=== PATIENT | male | born 1995 | race Caucasian/White ===

== ENCOUNTER → 2017-11-14 17:42 | Outpatient (CLI) | payer BC, SELFPAY | PROVIDERS: Referring Provider Physician Assistant; Visit Provider Physician Assistant | DX: J02.9 Acute pharyngitis, unspecified (principal) | CPT/HCPCS: 87081 ==

== ENCOUNTER → 2018-04-09 16:01 | Outpatient (CLI) | payer BC, SELFPAY ==
[2018-04-09 15:53] VITALS: BMI 39.4
--- NOTE | 2018-04-09 16:04 | RAD_ITS ---
STUDY: X-RAY - RIGHT HAND REASON FOR EXAM: Male, 22 years old. Fifth metacarpal pain, swelling and bruising. TECHNIQUE: view(s) of the hand. COMPARISON: None. FINDINGS: Normal radiocarpal articulation. Normal distal radioulnar joint. Normal visualized carpal bones. Normal carpal articulations Normal carpometacarpal articulation of the thumb. Normal second through fifth carpometacarpal joints. First through fourth metacarpals are normal. There is an acute, nondisplaced fracture of the fifth metacarpal neck and distal shaft with moderate apex dorsal angulation. Normal metacarpophalangeal joint of the thumb. Normal interphalangeal joint of the thumb. Normal proximal and distal phalanges of the thumb. Normal metacarpophalangeal joints of the second through fifth fingers. Normal proximal and distal interphalangeal joints of the second through fifth fingers. Normal phalanges of the second through fifth fingers. There is mild dorsal and medial soft tissue swelling. RAD/Hand Min 3 Views IMPRESSION: 1. Acute fifth metacarpal Boxer's fracture, as described. Electronically Signed: Yelitza Kumar MD at 16:39 EST Tel , Service support ,
== END ==
PROVIDERS: Referring Provider Physician Assistant; Visit Provider Physician Assistant
DX: S69.91XA Unspecified injury of right wrist, hand and finger(s), initial encounter (principal)
CPT/HCPCS: 73130

== ENCOUNTER → 2018-04-10 08:58 | Outpatient (CLI) | payer BC, SELFPAY ==
[2018-04-09 15:53] VITALS: BMI 39.4
--- NOTE | 2018-04-10 08:59 | RAD_ITS ---
STUDY: X-RAY - RIGHT HAND REASON FOR EXAM: Male, 22 years old. Injury. TECHNIQUE: 3 view(s) of the hand. COMPARISON: April 09, 2018 FINDINGS: Casting material obscures anatomic detail. Normal radiocarpal articulation. Normal distal radioulnar joint. Normal visualized carpal bones. Normal carpal articulations Normal carpometacarpal articulation of the thumb. Normal second through fifth carpometacarpal joints. There is a fracture again visualized within the distal diaphysis of the fifth metacarpal with ventral angulation of the metacarpal head. The alignment has not significantly changed since the prior examination. Normal metacarpophalangeal joint of the thumb. Normal interphalangeal joint of the thumb. Normal proximal and distal phalanges of the thumb. Normal metacarpophalangeal joints of the second through fifth fingers. Normal proximal and distal interphalangeal joints of the second through fifth fingers. Normal phalanges of the second through fifth fingers. The soft tissue structures are unremarkable. RAD/Hand Min 3 Views IMPRESSION: Fifth metacarpal fracture. Electronically Signed: Traci Sheikh MD at 17:20 EST Tel , Service support ,
== END ==
PROVIDERS: Referring Provider Physician Assistant; Visit Provider Physician Assistant
DX: S92.353A Displaced fracture of fifth metatarsal bone, unspecified foot, initial encounter for closed fracture (principal)
CPT/HCPCS: 73130

== ENCOUNTER → 2018-04-17 15:18 | Outpatient (CLI) | payer BC, SELFPAY ==
[2018-04-10 13:26] VITALS: BMI 39.4
--- NOTE | 2018-04-17 15:20 | RAD_ITS ---
STUDY: X-RAY - RIGHT HAND REASON FOR EXAM: Fracture. TECHNIQUE: 3 view(s) of the hand. COMPARISON: Radiographs 04/10/2018. FINDINGS: Normal radiocarpal articulation. Normal distal radioulnar joint. Normal visualized carpal bones. Normal carpal articulations Normal carpometacarpal articulation of the thumb. Normal second through fifth carpometacarpal joints. There is a fracture of the fifth metacarpal neck with mild palmar angulation unchanged since the prior study. Normal metacarpophalangeal joint of the thumb. Normal interphalangeal joint of the thumb. Normal proximal and distal phalanges of the thumb. Normal metacarpophalangeal joints of the second through fifth fingers. Normal proximal and distal interphalangeal joints of the second through fifth fingers. Normal phalanges of the second through fifth fingers. There is an overlying cast. RAD/Hand Min 3 Views IMPRESSION: No interval change of the fifth metacarpal fracture. Electronically Signed: Humble Wren MD at 13:53 EST Tel , Service support ,
== END ==
PROVIDERS: Referring Provider Physician Assistant; Visit Provider Physician Assistant
DX: S62.306A Unspecified fracture of fifth metacarpal bone, right hand, initial encounter for closed fracture (principal)
CPT/HCPCS: 73130

== ENCOUNTER → 2018-04-25 15:21 | Outpatient (CLI) | payer BC, SELFPAY ==
[2018-04-17 15:23] VITALS: BMI 39.4
--- NOTE | 2018-04-25 15:22 | RAD_ITS ---
STUDY: X-RAY - RIGHT HAND REASON FOR EXAM: Fifth metacarpal fracture. TECHNIQUE: 3 view(s) of the hand. COMPARISON: Radiographs 04/17/2018. FINDINGS: Normal radiocarpal articulation. Normal distal radioulnar joint. Normal visualized carpal bones. Normal carpal articulations Normal carpometacarpal articulation of the thumb. Normal second through fifth carpometacarpal joints. There is a fracture of the fifth metacarpal neck with mild palmar angulation unchanged since the prior study. Normal metacarpophalangeal joint of the thumb. Normal interphalangeal joint of the thumb. Normal proximal and distal phalanges of the thumb. Normal metacarpophalangeal joints of the second through fifth fingers. Normal proximal and distal interphalangeal joints of the second through fifth fingers. Normal phalanges of the second through fifth fingers. There is an overlying cast. RAD/Hand Min 3 Views IMPRESSION: No interval change of the fifth metacarpal fracture. Electronically Signed: Humble Wren MD at 13:20 EDT Tel , Service support ,
== END ==
PROVIDERS: Referring Provider Physician Assistant; Visit Provider Physician Assistant
DX: S62.306A Unspecified fracture of fifth metacarpal bone, right hand, initial encounter for closed fracture (principal)
CPT/HCPCS: 73130

== ENCOUNTER → 2018-05-10 15:18 | Outpatient (CLI) | payer BC, SELFPAY ==
[2018-04-25 15:24] VITALS: BMI 39.4
--- NOTE | 2018-05-10 15:19 | RAD_ITS ---
STUDY: X-RAY - RIGHT HAND REASON FOR EXAM: Follow-up fracture. TECHNIQUE: 3 view(s) of the hand. COMPARISON: Radiographs 04/25/2018 and 04/17/2018. FINDINGS: Normal radiocarpal articulation. Normal distal radioulnar joint. Normal visualized carpal bones. Normal carpal articulations Normal carpometacarpal articulation of the thumb. Normal second through fifth carpometacarpal joints. There is a healing fracture of the fifth metacarpal neck with mild palmar subluxation and increasing callus formation. Normal metacarpophalangeal joint of the thumb. Normal interphalangeal joint of the thumb. Normal proximal and distal phalanges of the thumb. Normal metacarpophalangeal joints of the second through fifth fingers. Normal proximal and distal interphalangeal joints of the second through fifth fingers. Normal phalanges of the second through fifth fingers. The soft tissue structures are unremarkable. RAD/Hand Min 3 Views IMPRESSION: Healing fracture of the fifth metacarpal. Electronically Signed: Humble Wren MD at 15:15 EDT Tel , Service support ,
== END ==
PROVIDERS: Referring Provider Orthopaedic Surgery; Visit Provider Orthopaedic Surgery
DX: S62.306A Unspecified fracture of fifth metacarpal bone, right hand, initial encounter for closed fracture (principal)
CPT/HCPCS: 73130